=== PATIENT | male | born 1975 | race Caucasian/White ===

== ENCOUNTER 2023-10-28 18:26 | Emergency (ER) | payer OTHER, SELFPAY ==
--- NOTE | ~2023-10-28 | XR_ITS ---
EXAM: XR foot LT min 3V DATE: 10/28/2023 19:13 HISTORY: pain bruising . COMPARISON: None available. FINDINGS: Normal mineralization. No fracture or dislocation. No lytic or blastic lesion. Mild degene rative change at the first MTP joint. Os navicularis. Mild Achilles and plantar enthesopathy. No eros ion or periosteal change. Soft tissues within normal limits. IMPRESSION: No acute osseous finding in the left foot. Reviewed, dictated and finalized at location K.
[2023-10-28 18:45] VITALS: BP 129/79; PULSE 102; RESP 18; TEMP 36.6; O2SAT 98
--- NOTE | 2023-10-28 19:02 | ED.LOWEXIN ---
HPI - Extremity Injury (Lower) General Chief Complaint: Extremity Injury, Upper Stated Complaint: Left Foot Injury Source: patient Mode of arrival: ambulatory Limitations: no limitations History of Present Illness HPI Narrative: 47-year-old male presented for complaint of left foot pain, bruising and swelling x2days. He states he did a lot of walking 2 days ago. Also states he injured the foot 10/18, when he stepped wrong and rolled the ankle. Since then he had been having swelling to the outer side of the foot. Rates pain 04/27. Not taking anything for pain. Has applied ice. Related Data Home Medications Medication Instructions Recorded Confirmed omeprazole magnesium 20 mg 20 mg PO DAILY 10/28/23 10/28/23 tablet,delayed release (Prilosec OTC) trazodone 150 mg tablet See Rx Instructions .Route .COMPLEX 10/28/23 10/28/23 Allergies Allergy/AdvReac Type Severity Reaction Status Date / Time No Known Allergies Allergy Verified 10/28/23 18:54 Review of Systems Review of Systems: CONSTITUTIONAL: Denies body aches, fever, chills CARDIOVASCULAR: Denies chest pain, palpitations, or edema. RESPIRATORY: Denies cough or dyspnea. SKIN: Denies rash, itching, or wounds. MUSCULOSKELETAL: reports left foot pain, swelling NEUROLOGIC: Denies headache, numbness, tingling, or weakness. All systems reviewed & are unremarkable except as noted in HPI and below PMFSH Comments At time of signature, I have reviewed and agree with nursing past medical, surgical, social and family history unless otherwise noted. Please see nursing chart for further information. There is no relevant family history pertinent to the presenting complaint Exam Narrative: GENERAL: Well-appearing CHEST: Speaks in full sentences. No respiratory distress. HEART: Regular rate and rhythm. Normal and equal peripheral pulses. EXTREMITIES: Left foot has normal strength and sensation, normal range of motion. Swelling noted to dorsal aspect of left foot with ecchymosis to lateral aspect, No point tenderness. No open wounds, or obvious deformity; alignment normal, pulse palpable and equal bilaterally, skin warm, dry, pink. Capillary refill less than 3 seconds. SKIN: Warm, dry NEURO: Alert and oriented x3. Course Course Emergency Course: Patient is aware of diagnosis, understands and agrees to treatment plan. Anticipatory guidance given. Patient agrees to follow-up as directed and is aware of reasons to seek care at the emergency department. Portions of this record may have been created with voice recognition software Level of Care: Express Care Visit Vital Signs Vital signs: Vital Signs Temperature 98 F 10/28/23 18:45 Pulse Rate 102 H 10/28/23 18:45 Respiratory Rate 18 10/28/23 18:45 Blood Pressure 129/79 10/28/23 18:45 Pulse Oximetry 98 10/28/23 18:45 Temperature 98 F 10/28/23 18:45 Pulse Rate 102 H 10/28/23 18:45 Respiratory Rate 18 10/28/23 18:45 Blood Pressure 129/79 10/28/23 18:45 Pulse Oximetry 98 10/28/23 18:45 Reviewed MDM - Extremity Injury (Lower) MDM Narrative Medical decision making narrative: Discussed physical exam findings and xray results. declined AMINA. Advised supportive measures and signs/symptoms to go to the ER. Pt is appropriate for outpt treatment and f/u. Differential Diagnosis Differential diagnosis: Likely ankle sprain and strain and other (Plantar fasciitis, heel spur, foot strain/sprain, metatarsal fracture, metatarsalgia, anderson's neuroma) Imaging Data Radiologist's impression: Patient: Waqas Herrera : 1975 MR#: [id number] Age: 47 Acct:[id number] Loc: [facility] ADM Date: 10/28/23Attending Dr: Ordering Physician: Lisa García APRN Date of Service: 10/28/23 Procedure(s): XR foot LT min 3V Accession Number(s): [id number] cc: Lisa García APRN; Charity, Lorie VERNON~ EXAM: XR foot LT min 3V DATE: 10/28/2023 19:13 HISTORY:
== END 2023-10-28 19:30 | disposition home or self-care (01) ==
PROVIDERS: Emergency Provider Nurse Practitioner Family; PCP Nurse Practitioner Family
DX: S93.602A Unspecified sprain of left foot, initial encounter (principal); X50.3XXA Overexertion from repetitive movements, initial encounter; Y93.01 Activity, walking, marching and hiking; K21.9 Gastro-esophageal reflux disease without esophagitis
CPT/HCPCS: 73630; 99203; G0463

== ENCOUNTER 2024-06-01 17:36 | Emergency (ER) | payer OTHER, SELFPAY ==
--- NOTE | ~2024-06-01 | XR_ITS ---
3 VIEWS LUMBAR SPINE Ordering provider: Kelly Castellanos NP History: . back pain.NKI. . Comparison: None. FINDINGS: VERTEBRAL BODIES: No visible fracture or subluxation. Degenerative changes of the spine. DISK SPACES: Normal. SOFT TISSUES: Normal. IMPRESSION: No acute osseous abnormality lumbar spine. Reviewed, dictated and finalized at location A.
[2024-06-01 17:42] VITALS: BP 123/85; PULSE 105; RESP 20; TEMP 36.9; O2SAT 96
--- OUTSIDE RECORDS SUMMARY | 2024-06-01 17:57 | XMS_ITS | Referral Summary ---
Author Organization [facility] Address [address] [place] [id number] Phone Care Team Providers Care Electric Repair Supervisor Name Role Phone Lorie Nash NP Primary Care Provider [phone] Allergies No known active allergies Medications MULTIVITAMIN ORAL Take by mouth Active omeprazole (PriLOSEC) 40 mg capsule Take 1 capsule (40 mg total) by mouth daily 90 capsule 3 10/04/2022 Active traZODone (DESYREL) 150 mg tabletIndicatio ns:Primary insomnia TAKE 1/2 TO 1 TABLET BY MOUTH EVERY NIGHT 90 tablet 3 02/20/2024 Active Active Problems Problem Noted Date Diagnosed Date Annual physical exam 10/07/2022 Assessment & Plan (10/07/2022 8:24 PM CDT): Patient and I discussed the folllowing: -Healthy, low fat diet. Avoiding junk food/fast food. -30 minutes of exercise most days of the week. Increase to 45 minutes for weight loss. -Colonoscopy at age 52 and further colonoscopys pending GI recs. not indicated -Influenza vaccine every year recommended this fall -F/u in 1 year for Annual PE or sooner if needed Swelling of lower extremity 10/04/2022 Assessment & Plan (10/07/2022 8:28 PM CDT): Unknown etiology at this time however we did discuss his weight in relation to swelling in the lower extremities especially as he is sitting most of the day. He carries most of his weight in his abdomen. I think this can contribute to his dependent edema. We discussed a low-salt diet and weight loss. Tachycardia with heart rate 100-120 beats per mi nute 10/04/2022 Assessment & Plan (10/07/2022 8:27 PM CDT): Patient is uncomfortable going to doctor's offices for medical office visits. He states his heart rate always goes up when he goes into the hospitalist or doctor's offices. His confirms this. EKG shows normal sinus rhythm and no ectopy. Primary insomnia 03/17/2020 Assessment & Plan (02/20/2024 4:28 PM DATA NETWORK ARCHITECT): He is stable on his current medication trazodone 150 mg at bedtime. He wishes to continue this. He does not wish to receive any other healthcare interventions at this time so we will refill his medication. I gave him 1 year's worth and will have him follow-up in 1 year. Assessment & Plan (10/07/2022 8:29 PM CDT): Stable. He continues on 75 mg trazodone. This works well for him so will continue current medication may follow-up in 6 months Assessment & Plan (01/05/2022 1:57 PM DATA NETWORK ARCHITECT): Patient has been on Trazodone 150 mg for many years per pt and his . Stable on the medication. With patient's snoring and gasping in the middle of the night, I discussed possibility of MARIANO. Patient not agreeable at this time for further investigation as him and his believe this is due to worsening GERD. Assessment & Plan (03/17/2020 4:15 PM DATA NETWORK ARCHITECT): Stable on current. recommend at least 10 minutes of moderate intensity exercise most days of the week with a goal of 150 minutes weekly. Gastroesophageal reflux disease without esophagi tis 03/17/2020 Assessment & Plan (10/07/2022 8:26 PM CDT): Discussed risks and benefits of medication versus symptoms. Will continue him on 40 mg of omeprazole once daily. Alternatively he could try Pepcid 20 mg twice daily. He may try weaning off by taking it every other day. He has a history of either Macdonald's or esophagitis but his last EGD was many years ago. Will refer to GI for updated EGD Assessment & Plan (01/05/2022 1:56 PM DATA NETWORK ARCHITECT): Worsening symptoms, will try switching to Pantoprazole. Discussed potential for GI consult if not improvement-pt not too keen on this. Will re-evaluate in 6 weeks. Encouraged healthy diet and exercise Avoid trigger foods including: carbonated beverages, caffeine, spicy, fried foods, tomatoes, cucumbers, and mint Avoid eating/drinking anything for at least 2 hours before bed. Sleep with bed propped. Discussed increased risk of cdif and vit B12 deficiency with rn long term care use of PPI with pt, would like to remain on medication at this time Assessment & Plan (03/17/2020 4:15 PM DATA NETWORK ARCHITECT): Doing well with PPI Discussed no meals before bed Try to identify and avoid aggravating foods Class 2 drug-induced obesity with serious comorbidity and body mass index (BMI) of 36.0 to 36.9 in adult 07/11/2018 Assessment & Plan (10/07/2022 8:24 PM CDT): BMI Follow-up includes: nutrition counseling and exercise counseling. Assessment & Plan (01/05/2022 1:43 PM DATA NETWORK ARCHITECT): Healthy, low carbohydrate lifestyle and exercise for 150min/week recommended Assessment & Plan (07/11/2018 10:02 AM CDT): discussed healthy diet, exercise and adequate sleep Body mass index is 26.88 kg/m . Resolved Problems Problem Noted Date Diagnosed Date Resolved Date Post-operative state 09/11/2018 021 Bilateral inguinal hernia wi thout obstruction or gangrene 08/06/2018 03/17/2020 Overview (08/06/2018): Added automatically from request for surgery [id number] Right inguinal hernia 07/31/20182020 Right groin pain 07/11/2018 03/17/2020 Assessment & Plan (07/11/2018 10:24 AM CDT): Reviewed CT scan and US reports from 2010, 2016 true inguinal hernia vs sports hernia. With bulge in that area, I recommend eval by gen surgery If traditional hernia is not felt to be there, will recommend PT. Release for prior records form PCP Immunizations Immunization Administration Dates Next Due Influenza, Quadrivalent, Spl it, Intramuscular 12/11/2016 Influenza, Quadrivalent, Spl it, Preservative Free, Intramuscular 01/15/2021 Influenza, Unspecified 01/04/2022(Deferred: Lisa ent decision) PPD TEST 01/02/2005 Tdap 10/04/2016,01/02/2005 Social History Tobacco Use Types Packs/Day Years Used Date Smoking Tobacco: Former Cigarettes Q uit: 02/19/2008 Smokeless Tobacco: Never Tobacco Cessation:Counseling Given: Yes Alcohol Use Standard Drinks/Week Comments Not Currently 0 (1 standard drink = 0.6 oz pur e alcohol) PHQ-2 Answer Date Recorded PHQ-2 Total Score (If total score is 3 or more points, staff should administer the PHQ-9) 0 02/20/2024 Sex and Gender Information Value Date Recorded Sex Assigned at Not on file Legal Sex Male 4:55 PM CDT Gender Identity Male 09/01/2018 11:54 AM CDT Sexual Orientation Straight 03/13/2020 9: 02 PM DATA NETWORK ARCHITECT Last Filed Vital Signs Vital Sign Reading Time Taken Comments Blood Pressure 126/78 10/04/2022 2:20 PM CDT Pulse 106 10/04/2022 2:20 PM CDT Temperature 36.4 C (97.6 F) 11/14/2021 5:24 PM CDT Respiratory Rate 20 10/04/2022 2:20 PM CDT Oxygen Saturation 96% 10/04/2022 2:20 PM CDT Inhaled Oxygen Concentration - - Weight 110.7 kg (244 lb) 10/04/2022 2:20 PM CDT Height 174 cm (5' 8.5 ) 10/04/2022 2:20 PM CDT Body Mass Index 36.56 10/04/2022 2:20 PM CDT Plan of Treatment Not on file Medical Devices Implanted Type Area Dead Mail Checker Device Identifier Shelf Expiration Date Model / Serial / Lot [employer]/C R Bard [id number] Bard 3dmax 6x4in Seal Edge Groin Left Large 3d Curve Contour Mesh - [id number] Implanted:Qty : 1 on 08/29/2018 by Sunny Pham MD at [facility] Left: Inguinal [employer]/C R Bard [id number] 05/16/2023 [id number] / / [id number] [employer]/C R Bard [id number] Bard 3dmax 6x4in Seal Edge Groin Right Large 3d Curve Contour - [id number] Implanted:Qty : 1 on 08/29/2018 by Sunny Pham MD at [facility] Right: Inguinal [employer]/C R Bard [id number] 03/17/2023 [id number] / / [id number] Insurance [facility] EMPL[employer]EE HE[employer] PLANS Address: [facility] [address] [place] [address] Care Teams Electric Repair Supervisor Relationship Specialty Start Date End Date Lorie Nash NP PCP - General Family Medicine 10/04/22
--- OUTSIDE RECORDS SUMMARY | 2024-06-01 17:57 | XMS_ITS | Clinical Summary ---
Author Organization [facility] Address [address] [place] [phone] Phone Care Team Providers Care Carpet Layer Name Role Phone Lorie Nash NP Primary Care Provider [phone] Allergies No known active allergies Medications MULTIVITAMIN [...] 03/17/2020 Assessment & Plan (02/20/2024 4:28 PM GUEST SERVICE TEAM LEADER): He is stable on his current medication [...] months Assessment & Plan (01/05/2022 1:57 PM GUEST SERVICE TEAM LEADER): Patient has been on Trazodone 150 mg for many years per pt and his . Stable on the medication. With patient's snoring and gasping in the middle of the night, I discussed possibility of MARIANO. Patient not agreeable at this time for further investigation as him and his believe this is due to worsening GERD. Assessment & Plan (03/17/2020 4:15 PM GUEST SERVICE TEAM LEADER): Stable on current. recommend at least 10 [...] EGD Assessment & Plan (01/05/2022 1:56 PM GUEST SERVICE TEAM LEADER): Worsening symptoms, will try switching to Pantoprazole. [...] of cdif and vit B12 deficiency with rat exterminator use of PPI with pt, would like to remain on medication at this time Assessment & Plan (03/17/2020 4:15 PM GUEST SERVICE TEAM LEADER): Doing well with PPI Discussed no meals before bed Try to identify and avoid aggravating foods Class 2 drug-induced obesity with serious comorbidity and body mass index (BMI) of 36.0 to 36.9 in adult 07/11/2018 Assessment & Plan (10/07/2022 8:24 PM CDT): BMI Follow-up includes: nutrition counseling and exercise counseling. Assessment & Plan (01/05/2022 1:43 PM GUEST SERVICE TEAM LEADER): Healthy, low carbohydrate lifestyle and exercise for 150min/week recommended Assessment & Plan (07/11/2018 10:02 AM CDT): discussed healthy diet, exercise and adequate sleep Body mass index is 26.88 kg/m . Resolved Problems Problem Noted Date Diagnosed Date Resolved Date Post-operative state 09/11/2018 021 Bilateral inguinal hernia wi thout obstruction or gangrene 08/06/2018 03/17/2020 Overview (08/06/2018): Added automatically from request for surgery [id number] Right inguinal hernia 07/31/20182020 Right groin pain [...] ent decision) PPD TEST 01/02/2005 Tdap 10/04/2016,01/02/2005 Surgical History Surgery Date Site/Laterality Comments HERNIA REPAIR 08/18/2018 - 09/17/2018 Bilateral Medical History Medical History Date Comments Acid reflux Insomnia Family History Medical History Relation Name Comments No Known Problems Daughter 1 No Known Problems Daughter 2 Prostate cancer Father No Known Problems Half-Brother No Known Problems Half-Sister No Known Problems Mother No Known Problems Sister Colon cancer Neg Hx Relation Name Status Comments Daughter 1 Alive Daughter 2 Alive Father Alive Half-Brother Alive Half-Sister Alive Mother Alive Sister Alive Social History Tobacco Use Types Packs/Day Years [...] Sexual Orientation Straight 03/13/2020 9: 02 PM GUEST SERVICE TEAM LEADER Obstetrics History Last Filed Vital Signs Vital Sign Reading [...] 10/04/2022 2:20 PM CDT Plan of Treatment Health Maintenance Due Date Last Done Comments Colon Cancer Screening-Colonoscopy 1975 Hepatitis C Screening 1975 Prostate Cancer Screening-PSA 1975 Hepatitis B Screening 11/29/1995 Regular Well Visit/Exam 18-64 10/05/2023 10/04/2022 Covid-19 Vaccine ( season) 2023 12/15/2021, 01/15/2021, 05/20/2020, Additional history exists Influenza Vaccine (#1) 2023 01/15/2021, 2016 Depression Screening 02/19/2025 02/20/2024, 10/04/2022, 01/04/2022, Additional history exists DTaP/Tdap/Td Vaccine (3 - Td or Tdap) 10/04/2026 10/04/2016, 01/02/2005 HPV Vaccines Aged Out No longer eligi ble based on patient's age to complete this topic Pneumococcal vaccine <65 Aged Out No longer eligible based on patient's age to complete this topic Medical Devices Implanted Type Area Skiver Box Toe Device Identifier Shelf Expiration Date Model / Serial / Lot [employer]/C R Bard [id number] Bard 3dmax 6x4in Seal Edge Groin Left Large 3d Curve Contour Mesh - [id number] Implanted:Qty : 1 on 08/29/2018 by Sunny Pham MD at Left: Inguinal [employer]/C R Bard [id number] 05/16/2023 [id number] / / [id number] [employer]/C R Bard [id number] Bard 3dmax 6x4in Seal Edge Groin Right Large 3d Curve Contour - [id number] Implanted:Qty : 1 on 08/29/2018 by Sunny Pham MD at Right: Inguinal [employer]/C R Bard [id number] 03/17/2023 [id number] / / [id number] Insurance [facility] PPO [facility] EMPL[employer]EE HEALTH PLANS Address: [facility] [id number] [place] [address] Care Teams Carpet Layer Relationship Specialty Start Date End Date Lorie Nash NP PCP - General Family Medicine 10/04/22
--- OUTSIDE RECORDS SUMMARY | 2024-06-01 17:58 | XMS_ITS | Data Portability ---
Author Organization [facility] Jennifer [facility] Address [address] [place] [address] Care Team Providers Care Prorate Clerk Name Role Phone IVY CLAY Primary Care Provider Unavailabl e Assessment No assessment recorded. Plan of Treatment Reminders Order Date Submit Date Provider Last Modified By Organization Details Last Modified Time Details Appointments None recorded. Lab None recorded. Referral general surgeon referral - Please call pt to schedule appointmen t, Thank you 2017 018 [email or web address] Not available 9 09:33:00 Procedures None recorded. Surgeries None recorded. Imaging None recorded. Medication Orders azithromyc in 250 mg tablet 2018 019 INTERFACE [facility] #[id number], [address], [place], [place], [id number], 9 10:24:46 methylpred nisolone 4 mg tablets in a dose pack 2018 019 [facility] #[id number], [address], [place], [place], [id number], 9 10:24:46 amoxicilli n 875 mg-potassi um clavulanat e 125 mg tablet 2017 018 kyounmartina [facility] #[id number], [address], [place], [place], [id number], 9 10:10:34 ranitidine 300 mg tablet 2017 018 INTERFACE [facility] #[id number], [address] [place], [place], [id number], 8 10:24:07 methylpred nisolone 4 mg tablets in a dose pack 2017 018 [id number], [address], [place], [place], [id number], 9 10:10:51 trazodone 150 mg tablet 2017 018 [facility] #[id number], [address], [place], [place], [id number], 8 16:36:36 ranitidine 300 mg tablet 2017 018 [id number], [address], [place], [place], [id number], 8 16:38:43 trazodone 150 mg tablet 2016 017 [facility] #[id number], [address], [place], [place], [id number], 7 09:02:17 Patient TargetsNo targets recorded. Patient Instructions Encounter Date Encounter Id Patient Instructions Last Modified By Organization Details Last Modified Time 12/11/2016 [id number] STOP tamsulosin. Increase trazodone to 150mg - new higher dose prescription sent today (take only one tablet) [email or web address] Not available 12/11/2016 09:02:50 02/28/2018 [id number] Given referral for Dr. Hewitt at [facility] for general surgery to eval hernia [email or web address] Not available 02/28/2018 10:26:38 Reason for Referral General Surgeon Referral for Inguinal pain Please call pt to schedule appointment, Thank you Referring Physician: Ivy Clay, Internal Medicine, Encounter Date: 02/17/2018 Results Created Date Observation Date Name Description Value Unit Range Abnormal Flag Note LastModifiedBy Organization Detail LastModifiedTime 10/05/19 17 10/05/2016 CBC WBC 7.9 x10e3 /uL 3.4-10 .8 Not Available [facility] ([facility]) [address] [facility] [place], [address], 10/05/2016 06:08:31 10/05/19 17 10/05/2016 CBC RBC 5.15 x10e6 /uL 4.14-5 .80 Not Available [facility] ([facility]) [address] [facility], [place], [address], 10/05/2016 06:08:31 10/05/19 17 10/05/2016 CBC hemoglobin 15.0 g/dL 12.6-1 7.7 Not Available [facility] ([facility]) [address] [place], [address], 10/05/2016 06:08:31 10/05/19 17 10/05/2016 CBC hematocrit 44.3 % 37.5-5 1.0 Not Available [facility] ([facility]) [address] [place], [address], 10/05/2016 06:08:31 10/05/1910/05/2016 CBC MCV 86 fL 79-97 Not Available [facility] ([facility]) [address] [place], [address], 10/05/2016 06:08:31 10/05/19 17 10/05/2016 CBC MCH 29.1 pg 26.6-3 3.0 Not Available [facility] ([facility]) [address] [place], [address], 10/05/2016 06:08:31 10/05/19 17 10/05/2016 CBC MCHC 33.9 g/dL 31.5-3 5.7 Not Available [facility] ([facility]) [address] [place], [address], 10/05/2016 06:08:31 10/05/19 17 10/05/2016 CBC RDW 13.3 % 12.3-1 5.4 Not Available [facility] ([facility]) [address] [facility], [place], [address], 10/05/2016 06:08:31 10/05/19 17 10/05/2016 CBC platelets 225 x10e3 /uL 150-37 9 Not Available [facility] ([facility]) [address] [facility], [place], [address], 10/05/2016 06:08:31 10/05/19 17 10/05/2016 CBC neutrophils 62 % Not Avai lable [facility] ([facility]) [address] [facility], [place], [address], 10/05/2016 06:08:31 10/05/1910/05/2016 CBC lymphs 28 % Not Available [facility] ([facility]) [address] [facility], [place], [address], 10/05/2016 06:08:31 10/05/1910/05/2016 CBC monocytes 6 % Not Availa ble [facility] ([facility]) [address] [facility] [place], [address], 10/05/2016 06:08:31 10/05/1910/05/2016 CBC eos 4 % Not Available [facility] ([facility]) [address] [facility], [place], [address], 10/05/2016 06:08:31 10/05/19 17 10/05/2016 CBC basos 0 % Not Available [facility] ([facility]) [address] [facility], [place], [address], 10/05/2016 06:08:31 10/05/1910/05/2016 CBC immature cells CARPENTER RAILCAR Not Available [facility]) [address] [facility], [place], [address], 10/05/2016 06:08:31 10/05/19 17 10/05/2016 CBC neutrophils (absolute) 4.8 x10e3 /uL 1.4-7. 0 Not Available [facility] ([facility]) [address] [facility] [place], [address], 10/05/2016 06:08:31 10/05/19 17 10/05/2016 CBC lymphs (absolute) 2.3 x10e3 /uL 0.7-3. 1 Not Available [facility] ([facility]) [address] [facility], [place], [address], 10/05/2016 06:08:31 10/05/1910/05/2016 CBC monocytes(ab solute) 0.5 x10e3 /uL 0.1-0. 9 Not Available [facility] ([facility]) [address] [facility], [place], [address], 10/05/2016 06:08:31 10/05/1910/05/2016 CBC eos (absolute) 0.3 x10e3 /uL 0.0-0. 4 Not Available [facility] ([facility]) [address] [facility], [place], [address], 10/05/2016 06:08:31 10/05/1910/05/2016 CBC baso (absolute) 0.0 x10e3 /uL 0.0-0. 2 Not Available [facility] ([facility]) [address] [facility], [place], [address], 10/05/2016 06:08:31 10/05/1910/05/2016 CBC immature granulocytes 0 % Not Available [facility]) [address] [facility] [place], [address], 10/05/2016 06:08:31 10/05/1910/05/2016 CBC immature grans (abs) 0.0 x10e3 /uL 0.0-0. 1 Not Available [facility] ([facility]) [address] [facility] [place], [address], 10/05/2016 06:08:31 10/05/19 17 10/05/2016 CBC NRBC CARPENTER RAILCAR Not Available [facility] ([facility]) [address] [place], [address], 10/05/2016 06:08:31 10/05/19 17 10/05/2016 CBC hematology comments: CARPENTER RAILCAR Not Available [facility]) [address] [place], [address], 10/05/2016 06:08:31 10/05/19 17 10/05/2016 CMP, serum or plasm a glucose, serum 86 mg/dL 65-99 Not Available [facility]) [address] [place], [address], 10/05/2016 06:08:31 10/05/19 17 10/05/2016 CMP, serum or plasm a BUN 11 mg/dL 6-20 Not Available [facility] ([facility]) [address] [place], [address], 10/05/2016 06:08:31 10/05/19 17 10/05/2016 CMP, serum or plasm a creatinine, serum 1.01 mg/dL 0.76-1 .27 Not Available [facility] ([facility]) [address] [place], [address], 10/05/2016 06:08:31 10/05/19 17 10/05/2016 CMP, serum or plasm a eGFR if nonafricn AM 94 mL/mi n/1.7 3 >59 Not Available [facility] ([facility]) [address] [place], [address], 10/05/2016 06:08:31 10/05/19 17 10/05/2016 CMP, serum or plasm a eGFR if africn AM 109 mL/mi n/1.7 3 >59 Not Available [facility] ([facility]) [address] [place], [address], 10/05/2016 06:08:31 10/05/19 17 10/05/2016 CMP, serum or plasm a BUN/creatini ne ratio 11 9-20 Not Available [facility]) [address] [facility] [place], [address], 10/05/2016 06:08:31 10/05/19 17 10/05/2016 CMP, serum or plasm a sodium, serum 142 mmol/ L 134-14 4 Not Available [facility] ([facility]) [address] [place], [address], 10/05/2016 06:08:31 10/05/1910/05/2016 CMP, serum or plasm a potassium, serum 4.7 mmol/ L 3.5-5. 2 Not Available [facility] ([facility]) [address] [place], [address], 10/05/2016 06:08:31 10/05/19 17 10/05/2016 CMP, serum or plasm a chloride, serum 101 mmol/ L 96-106 Not Available [facility] ([facility]) [address] [place], [address], 10/05/2016 06:08:31 10/05/1910/05/2016 CMP, serum or plasm a carbon dioxide, total 25 mmol/ L 18-29 Not Available [facility] ([facility]) [address] [place], [address], 10/05/2016 06:08:31 10/05/1910/05/2016 CMP, serum or plasm a calcium, serum 9.1 mg/dL 8.7-10 .2 Not Available [facility] ([facility]) [address] [place], [address], 10/05/2016 06:08:31 10/05/1910/05/2016 CMP, serum or plasm a protein, total, serum 6.8 g/dL 6.0-8. 5 Not Available [facility] [address] [facility] [place], [address], 10/05/2016 06:08:31 10/05/1910/05/2016 CMP, serum or plasm a albumin, serum 4.7 g/dL 3.5-5. 5 Not Available [facility] ([facility] [address] [place], [address], 10/05/2016 06:08:31 10/05/1910/05/2016 CMP, serum or plasm a globulin, total 2.1 g/dL 1.5-4. 5 Not Available [facility] [address] [place], [address], 10/05/2016 06:08:31 10/05/1910/05/2016 CMP, serum or plasm a A/G ratio 2.2 1.2-2. 2 Not Available [facility] ([facility]) [address] [facility] [place], [address], 10/05/2016 06:08:31 10/05/1910/05/2016 CMP, serum or plasm a bilirubin, total 0.4 mg/dL 0.0-1. 2 Not Available [facility] [address] [facility] [place], [address], 10/05/2016 06:08:31 10/05/1910/05/2016 CMP, serum or plasm a alkaline phosphatase, S 74 IU/L 39-117 Not Available [facility] [address] [place], [address], 10/05/2016 06:08:31 10/05/1910/05/2016 CMP, serum or plasm a AST (SGOT) 30 IU/L 0-40 Not Available [facility] [address] [place], [address], 10/05/2016 06:08:31 10/05/192017 CMP, serum or plasm a ALT (SGPT) 66 IU/L 0-44 above high normal Not Available [facility] ([facility]) [address] [facility] [place], [address], 10/05/2016 06:08:31 10/05/19 17 10/05/2016 urina lysis , compl ete specific gravity 1.028 1.005- 1.030 Not Available [facility] ([facility]) [address] [facility], [place], [address], 10/05/2016 06:08:32 10/05/1910/05/2016 urina lysis , compl ete pH 5.5 5.0-7. 5 Not Available [facility] ([facility]) [address] [facility], [place], [address], 10/05/2016 06:08:32 10/05/1910/05/2016 urina lysis , compl ete urine-color YELLOW yellow Not Available [facility]) [address] [facility], [place], [address], 10/05/2016 06:08:32 10/05/1910/05/2016 urina lysis , compl ete appearance CLEAR clear Not Available [facility] ([facility]) [address] [facility], [place], [address], 10/05/2016 06:08:32 10/05/1910/05/2016 urina lysis , compl ete WBC esterase NEGATI VE negati ve Not Available [facility] ([facility]) [address] [facility], [place], [address], 10/05/2016 06:08:32 10/05/1910/05/2016 urina lysis , compl ete protein NEGATI VE negati ve/tra ce Not Available [facility] ([facility]) [address] [facility], [place], [address], 10/05/2016 06:08:32 10/05/19 17 10/05/2016 urina lysis , compl ete glucose NEGATI VE negati ve Not Available [facility] ([facility]) [address] [place], [address], 10/05/2016 06:08:32 10/05/19 17 10/05/2016 urina lysis , compl ete ketones NEGATI VE negati ve Not Available [facility] ([facility]) [address] [place], [address], 10/05/2016 06:08:32 10/05/19 17 10/05/2016 urina lysis , compl ete occult blood NEGATI VE negati ve Not Available [facility] ([facility]) [address] [place], [address], 10/05/2016 06:08:32 10/05/19 17 10/05/2016 urina lysis , compl ete bilirubin NEGATI VE negati ve Not Available [facility] ([facility]) [address] [place], [address], 10/05/2016 06:08:32 10/05/19 17 10/05/2016 urina lysis , compl ete urobilinogen ,semi-qn 0.2 mg/dL 0.2-1. 0 Not Available [facility] ([facility]) [address] [place], [address], 10/05/2016 06:08:32 10/05/19 17 10/05/2016 urina lysis , compl ete nitrite, urine NEGATI VE negati ve Not Available [facility] ([facility]) [address] [place] [address], [address], 10/05/2016 06:08:32 10/05/1910/05/2016 urina lysis , compl ete microscopic examination COMMEN T MICRO SCOPI C NOT INDIC ATED AND NOT PERFO RMED. Not Available [facility] ([facility]) [address] [place], [address], 10/05/2016 06:08:32 10/05/19 17 10/05/2016 lipid panel , serum cholesterol, total 194 mg/dL 100-19 9 Not Available [facility] ([facility]) [address] [place], [address], 10/05/2016 06:08:32 10/05/19 17 10/05/2016 lipid panel , serum triglyceride s 264 mg/dL 0-149 above high normal Not Available [facility] ([facility]) [address] [place], [address], 10/05/2016 06:08:32 10/05/19 17 10/05/2016 lipid panel , serum HDL cholesterol 30 mg/dL >39 below low normal Not Available [facility] ([facility]) [address] [facility] [place], [address], 10/05/2016 06:08:32 10/05/19 17 10/05/2016 lipid panel , serum VLDL cholesterol airam 53 mg/dL 5-40 above high normal Not Available [facility] ([facility]) [address] [place], [address], 10/05/2016 06:08:32 10/05/19 17 10/05/2016 lipid panel , serum LDL cholesterol calc 111 mg/dL 0-99 above high normal Not Available [facility] ([facility]) [address] [facility] [place], [address], 10/05/2016 06:08:32 10/05/19 17 10/05/2016 lipid panel , serum comment: CARPENTER RAILCAR Not Available [facility] ([facility]) [address] [facility] [place], [address], 10/05/2016 06:08:32 10/16/19 17 10/15/2016 US, scrot um No observ ation record ed. [address] [place], [address], 10/16/2016 13:18:12 10/21/19 17 10/20/2016 CT, abdom en + pelvi s, w/ contr ast No observ ation record ed. [email or web address] [address] [place], [address], 10/24/2016 17:43:37 Result Notes None recorded. Problems Name Problem SNOMED Code Status Onset Date Resolution Date Notes Provider Name and Address Organization Details Recorded Time Inguinal pain 157414352 Active 2016 saw , conservati ve tx Ivy Clay PA-C Attn: Accountin g,[address] [facility], [place], [address], [facility] 8 16:34:46 Hyperlipid emia 14769740 Active 2016 Ivy Clay PA-C Attn: Accountscottie g,[address] [facility], [place], [address], [facility] 8 16:36:44 Gastroesop hageal reflux disease without esophagiti s 229501260 Active 2016 Ivy Clay PA-C Attn: Luis zelaya,[address] [facility], [place], [address], [facility] 7 09:20:18 Insomnia 152827732 Active 2016 Ivy Clay PA-C Attn: Luis g,[address] [facility], [place], [address], [facility] 7 09:01:47 Problem Notes None recorded. Procedures Surgical History None recorded. Imaging Results Imaging Date Name Status LastModified by Organiz ation Details LastModified Time 10/15/2016 US, scrotum completed [address] [place], [address], 10/16/2016 13:18:12 10/20/2016 CT, abdomen + pelvis, w/ contrast completed [email or web address] [place] [address] [place], [address], 10/24/2016 17:43:37 Procedure Notes None recorded. Medical Equipment None Reported. Allergies No known drug allergies Medications Name Sig Start Date Stop Date Status Note LastModified by Organization Details LastModified Time trazodone 50 mg tablet Take 1 tablet as needed by oral route at bedtime. 09/26 completed Not Available Not Available Not Available azithromyci n 250 mg tablet TAKE 2 TABLETS (500 MG) BY ORAL ROUTE ONCE DAILY FOR 1 DAY THEN 1 TABLET (250 MG) BY ORAL ROUTE ONCE DAILY FOR 4 DAYS 2018 active Not Available Not Available Not Avai lable ibuprofen 800 mg tablet TAKE 1 TABLET BY MOUTH THREE TIMES DAILY 2016 active prn Not Available Not Available Not Avai lable ranitidine 300 mg tablet TAKE 1 TABLET BY MOUTH EVERY DAY 2017 active Not Available Not Available Not Avai lable tamsulosin 0.4 mg capsule TAKE 1 CAPSULE BY MOUTH WITH BREAKFAST 12/11 completed Not Available Not Available Not Available trazodone 150 mg tablet TAKE 1 TABLET BY MOUTH AT BEDTIME NEEDED active Not Available Not Available No t Available omeprazole 20 mg capsule,del ayed release Take 1 capsule every day by oral route. 02/17 completed Not Available Not Available Not Available methylpredn isolone 4 mg tablets in a dose pack take as directed 2018 active Not Available Not Available Not Avai lable amoxicillin 875 mg-potassiu m clavulanate 125 mg tablet Take 1 tablet every 12 hours by oral route for 7 days. 02/28 completed Not Available Not Available Not Available Sleep Aid (diphenhydr amine) 25 mg capsule Take 1 capsule every day by oral route at bedtime. 10/16 completed Not Available Not Available Not Available Vitals Date Recorded Body height Body mass index (BMI) Body weight Heart rate Respiratory rate Body temperature Oxygen saturation Oxygen saturation in Arterial blood by Pulse oximetry Systolic blood pressure Diastolic blood pressure Provider Name and Address Organization Details Last Updated DateTime 8 170.82 cm 28.4 kg/m2 90610.0 4 g 82 /min 12 /min 98.7 [degF] 98 % 98 % 104 mm[Hg] 70 mm[Hg] JOSUÉ Ramachandran [place] - [place] 8 16:20:42 Date Recorded Body height Body mass index (BMI) Body weight Heart rate Respiratory rate Body temperature Oxygen saturation Oxygen saturation in Arterial blood by Pulse oximetry Systolic blood pressure Diastolic blood pressure Provider Name and Address Organization Details Last Updated DateTime 8 170.82 cm 29.1 kg/m2 03920.1 3 g 99 /min 16 /min 97.6 [degF] 96 % 96 % 128 mm[Hg] 92 mm[Hg] JOSUÉ Ramachandran [facility] 8 10:03:24 Date Recorded Body height Body mass index (BMI) Body weight Heart rate Respiratory rate Body temperature Oxygen saturation Oxygen saturation in Arterial blood by Pulse oximetry Systolic blood pressure Diastolic blood pressure Provider Name and Address Organization Details Last Updated DateTime 9 170.82 cm 28.5 kg/m2 62804.1 2 g 86 /min 16 /min 98.6 [degF] 98 % 98 % 126 mm[Hg] 90 mm[Hg] JOSUÉ Ramachandran [facility] 9 10:13:28 Date Recorded Body height Body mass index (BMI) Body weight Heart rate Respiratory rate Body temperature Oxygen saturation Oxygen saturation in Arterial blood by Pulse oximetry Systolic blood pressure Diastolic blood pressure Provider Name and Address Organization Details Last Updated DateTime 7 170.82 cm 29.8 kg/m2 11606.3 8 g 65 /min 12 /min 97.9 [degF] 98 % 98 % 114 mm[Hg] 72 mm[Hg] JOSUÉ Ramachandran [place] [facility] 7 09:01:55 Date Recorded Body height Body mass index (BMI) Body weight Heart rate Respiratory rate Body temperature Oxygen saturation Oxygen saturation in Arterial blood by Pulse oximetry Systolic blood pressure Diastolic blood pressure Provider Name and Address Organization Details Last Updated DateTime 7 170.82 cm 28.9 kg/m2 74303.7 4 g 109 /min 12 /min 98.3 [degF] 98 % 98 % 102 mm[Hg] 80 mm[Hg] Wendi Eden [facility] 7 08:36:58 Social History Question Answer Notes LastModified by Organizat ion Details LastModified Time Tobacco Smoking Status Former Smoker TIARA [place], [place] - [place] 10/04/2016 09:05:48 What Is Your Level Of Alcohol Consumption? Occasional Information not available 10/04/2016 What Is Your Level Of Caffeine Consumption? Moderate Couple Cups Of Coffee A Day Information not available 10/04/2016 What Type Of Diet Are You Following? 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 No Information not available 10/04/2016 Hard Of Hearing Or Deaf In One Or Both Ears? No Information not available 10/04/2016 Legally Blind In One Or Both Eyes? No Information not available 10/04/2016 Marital Status Information not available 10/04/2016 What Was The Date Of Your Most Recent Tobacco Screening? 02/28/2018 Information not available 09/11/2018 Seat Belts Used Routinely Yes Information not available 10/04/2016 Smoke Alarm In Home Yes Information not available 10/04/2016 How Much Tobacco Do You Smoke? No Information not available 10/04/2016 General Stress Level Medium Information not available 10/04/2016 Do You Use Sunscreen Routinely? No Information not available 10/04/2016 Sex: Unknown Functional Status Question Answer Note LastModified by Organization D etails LastModified Time What is your exercise level? None Information not available 10/04/2016 Mental Status None recorded. Family History Relationship Description Onset Age of this Age Resolved Age Notes LastModified by Organization Details LastModified Time Father No current problems or disability [email or web address] Not available 09:05:38 Mother No current problems or disability [email or web address] Not available 09:05:38 Medical History Condition Response Coronary Artery Disease N Other N High Blood Pressure N Atrial Fibrillation N Kidney or Bladder Problems N Thyroid Problems N GI Problems N Depression N COPD N Blood Clots N Skin Problems N Anemia N Heart Attack (SD) N Anxiety Disorder N Diabetes N Muscle, Joint, or Bone Problems N Seizures/Epilepsy N Acid Reflux (GERD) Y Cancer N Stroke N Asthma N Allergies N High Cholesterol N Hepatitis N Liver Disease N Headaches N Osteoporosis N Heart Failure N Immunizations Vaccine Type Date Status Note Provider Nam e and Address Organization Details Recorded Time Tdap 7 completed Not Available [facility] 03/07/2019 02:39:18 Influenza, split virus, quadrivalent, preservative 7 completed Not Available [facility] 03/07/2019 02:34:24 Past Encounters Encounter ID Performer Location Encounter Start Date Encounter Closed Date Diagnosis/Indication Diagnosis SNOMED-CT Code Diagnosis ICD10 Code Diagnosis Note [id number] FRANCISCO Ramos (Adult Med) [address] [place] [address] 10/04/2016 08:54:34 10/08/2016 10:35:26 Gastroesophageal reflux disease without esophagitis 142294258 K21.9 controlled on omeprazole , cont current medication , cont diet & exercise. Body mass index 25-29 - overweight 746374006 Z68.28 cont low fat diet, slowly add exercise as right groin pain allows. Adult heal th examination 343079057 Z00.00 denies any prior preventive care, only seeing providers for acute visits in recent past. 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 Lower urin saud tract symptoms 426284221 R39.9 present prior to groin pain sxs, possibly from correction benadryl Administra tion of diphtheria, pertussis, and tetanus vaccine [id number] Z23 Can't recall if he's ever had the Tdap booster Cholesterol screening 27 [id number] Z13.220 no prior screening per patient, 70lb weight loss in recent years [id number] FRANCISCO Ramos (Adult Med) [address] [place] [address] 10/24/2016 08:44:43 10/24/2016 10:46:19 Abdominal pain [id number] R10.9 RLQ radiating into right groin/scro glenn. Reviewed CT abd/pelvis and testicular ultrasound results with patient, no obvious hernia noted, no acute abdominal findings. discussed possible rectus abdominus muscle strain w/ possible intermitte nt hernia. Recommend continued use of ibuprofen before and after activity. Restart exercises that don't including heavy lifting and squats, start w/ cardio like eliptical. Keep appt with Retention of urine [id number] 4002 R33.9 cont generic flomax, drink plenty of water, stop Benadryl. Keep appt w/ [id number] FRANCISCO Ramos (Adult Med) [address] [place] [address] 12/11/2016 08:27:00 12/13/2016 18:15:19 Gastroesophageal reflux disease without esophagitis [id number] K21.9 controlled on omeprazole , cont current medication , cont diet & exercise. Insomnia [id number] G47.0 0 discussed at length options for treatment of insomnia. Advised to increase trazodone to 150mg at bedtime. Call in 4 weeks if still not working well and discuss options over the phone. Administra tion of influenza vaccine [id number] Z23 Retention of urine 35438 4002 R33.9 cont to stay away from daily use of benadryl Strain of abdominal muscle [id number] S39.011S reviewed types of isometric exercises to avoid rapid position change w/ push ups/sit ups. Gave examples of how to hold contracted positions like Plank instead of push up, etc. If movement hurts then stop it. [id number] JOSUÉ Ramachandran (Adult Med) [address] [place] [address] 09/26/2017 16:11:05 09/26/2017 16:49:02 Gastroesophageal reflux disease without esophagitis [id number] K21.9 controlled on omeprazole , but he is interested in changing med per his mom's recs (she's an RN). dwp precaution w/ terminal supervisor omeprazole use, recommend he either change to other PPI like Nexium or Protonix or change to Zantac. If he wants to take it once a day then recommend 300mg. Cont working on weight loss Insomnia 138016753 G47.0 0 His sleep is improved on trazodone. He would like to get full year of refills. Recommend once a year annual exam with labs. Inguinal pain [id number] R10.2 right sided, negative workup. He saw who recommende d conservati ve mgmt. Pt deferred surgical referral at this time. He feels he is able to work through the pain and started doing abdominal workouts again. Body mass index 25-29 - overweight 205832811 Z68.28 cont low fat diet, slowly add exercise as right groin pain allows. Flatulence , eructation and gas pain 591478786 R14.1 RUQ persists, but not as often, not as severe. he has started working out again. [id number] FRANCISCO Ramos (Adult Med) [address] [place] [address] 02/17/2018 09:51:00 02/17/2018 10:45:59 Acute otitis media 7266506 H65.01 right ear erythemato us w/ fluid, treat for ear infection w/ abx. Acute bron chitis with bronchospasm 68656986 J20.9 treat w/ prednsione and also start taking daily allergy med and benadryl at bedtime to help post-nasal drainage induced cough Insomnia 538095602 G47.0 0 His sleep is improved on trazodone. He would like to get full year of refills. Recommend once a year annual exam with labs. Gastroesop hageal reflux disease without esophagitis 570523636 K21.9 controlled on rantidine Inguinal pain 943408798 R10.2 Has been present for over one year. right sided, negative workup on scrotal u/s and CT abd/pelvis , but he continues to have pain & bulging to area especially w/ recent cough sxs. He saw and conservati ve measures recommende d at that time. Pt would like to discuss w/ general surgeon. Body mass index 25-29 - overweight [id number] Z68.28 He follows heart healthy diet and continues to exercise despite groin pain that comes & goes. 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 Cont allergy med during day, try benadryl at night to dry up post-nasal drainage. Ears look better. Call if not better at end of steroid pack. Health Concerns Section Related Observation LastModified by Organization Detai ls LastModified Time None Recorded Concern Status LastModified by Organization Details LastModified Time None Recorded Advance Directives Directive None Recorded Payers Encounter Date Sequence Insurance Name Policy Number Policy [place] Covered Member ID [place]ano Member ID Guarantor Name 10/24/2016 1 [employer] [employer] [place] ([place] [id number] Lexii Herrera [id number] Matias Herrera 12/11/2016 1 [place] [id number] Lexii Herrera [id number] Matias Herrera 09/26/2017 1 [employer] ([place]) [id number] Waqas Herrera [id number] Matias Herrera 02/17/2018 1 [employer] ([place]) [id number] Waqas Herrera [id number] Matias Herrera 02/28/2018 1 [employer] ([place]) [id number] Waqas Herrera [id number] Matias Herrera Notes Date Note Type Note Provider Name and Address Organization Details Recorded Time 10/24/2016 text/html abdominal pain persists. resting, laying down eases the pain. Activity exacerbates itmowed lawn Sat & hurt more on Saturday.Ibuprofen helps at the time but still gets pain. urinary sx are improving, not going as frequently, flow is a little better. Stopped benadryl, taking flomax. Has appt at end of month. HLD: wasn't fasting, but he has also gained weight since he developed abdominal pain. Ivy Clay PA-C Attn: [address] [place], [address], [facility] 10/24/2016 10:05:47 12/11/2016 text/html Insomnia: trazod one 50mg at first helped, but last few nights has had trouble falling asleep. The other night took 100mg, woke up at 4am and last night couldn't fall asleep until almost 1am. He has to wake up early and so he feels tired this morning. Urinary retention: better, off flomax for past week, didn't refill. stream is good, no hesitation, dribbling or frequency. Abdominal strain: getting better, still not 100%. Not using NSAIDs regularly. restarting some exercise, walking when weather was good; getting a treadmill so he can walk indoors in winter. wants to wait til spring to start running. Also wants to restart doing push ups, still wary of sit ups/crunches. Ivy Clay PA-C Attn: [address] [facility], [place], [address], [facility] 12/11/2016 10:07:36 09/26/2017 text/html right groin JOSUÉ Ramachandran, [place] [facility] 09/27/2017 10:11:04 02/17/2018 text/html CoughReported bypatient.Quality:b arking Severity:moderate Duration:symptoms lasting over 2 weeks Timing:gradual Context:non-smoker; worse at night(w/ laying down) Modifying Factors:OTC medication (Nyquil & Dayquil) Associated Symptoms:no fever; no chills; no heartburn; no nausea; no edema; no agitation;chest pain(mild w/ hard coughing);vomiting( w/ hard coughing spasms);wheezing;po st nasal dripNotes:dtr has similar cough & using neb tx. Right lateral abdominal pain is resolved.GERD cont to be controlled after changing from PPI to H2 missy.He continues to work out, but right groin pain persists and will feel bulge especially with past 2 weeks of persistent cough. Then bulge goes away on its own. Ivy Clay PA-C Attn: [address] [place], [address], [facility] 02/17/2018 10:31:54 02/28/2018 text/html Same sxs for pas t 3 weeks, seems worse, nikhil ear pressure, cough seems to have moved up in chest, tight wheezy type cough, still a lot of sinus drainage. Taking zyrtec at bedtime. completed all of amoxicillin. No known fevers or chills. Could only be seen by Dr. Johansen on Sat and that is his busiest day at work, asking for another surgeon referral Ivy Clay PA-C Attn: [address] [place], [address], [facility] 02/28/2018 10:26:55
--- NOTE | 2024-06-01 18:10 | ED.BACK ---
HPI - Back Pain/Injury General Chief Complaint: Back Pain/Injury Stated Complaint: Back Pain Time Seen by Provider: 06/01/24 18:10 Source: patient Mode of arrival: ambulatory Limitations: no limitations History of Present Illness HPI Narrative: 48-year-old male presents with complaint some mild low back aching for the past several weeks. Has been using a heating pad. Was sitting at desk on heating pad and felt sharp shooting pain to low back. Has reading pain to left lower extremity when lifting it up on to coffee table. Reports some intermittent weakness feeling to left lower extremity. No loss of bowel or bladder. Denies back injury. Has taken Tylenol today to treat pain. All systems reviewed and negative except as noted above. Related Data Home Medications ?Medication ?Instructions ?Recorded ?Confirmed ?Last Taken ?Type omeprazole magnesium 20 mg 20 mg PO DAILY 10/28/23 10/28/23 Unknown History tablet,delayed release (Prilosec OTC) Allergies Allergy/AdvReac Type Severity Reaction Status Date / Time No Known Allergies Allergy Verified 06/01/24 17:48 Review of Systems Review of Systems: CONSTITUTIONAL: Denies fever, chills, or sweats. EYES: Denies visual changes, redness, or discharge. ENT: Denies rhinorrhea, congestion, sore throat, or otalgia. CARDIOVASCULAR: Denies chest pain, palpitations, or edema. RESPIRATORY: Denies cough or dyspnea. GASTROINTESTINAL: Denies abdominal pain, nausea, vomiting, or diarrhea. GENITOURINARY: Denies dysuria or hematuria. SKIN: Denies rash or itching. MUSCULOSKELETAL: Reports low back pain with intermittent radiation to left lower extremity when lifting Leg. NEUROLOGIC: Denies headache, numbness, or weakness. PSYCHIATRIC: Denies anxiety or depression. All other systems reviewed are negative, except as documented in HPI. PMFSH Comments At time of signature, agree with nursing past medical, surgical, social and family history. There is no relevant family history pertinent to the presenting complaint. Exam Narrative: GENERAL: This is a well-nourished, well-developed patient, in no apparent distress. HEAD: normocephalic, atraumatic. EYES: PERRL. Sclera clear/white. Vision is grossly intact. EARS: External ears normal NOSE: External nose normal NECK: Neck supple, non-tender without lymphadenopathy, masses or thyromegaly. CARDIOVASCULAR: Regular rate and rhythm without murmurs, gallops, or rubs. RESPIRATORY: Clear to auscultation. Breath sounds equal bilaterally. No wheezes, rales, or rhonchi. SKIN: warm, Dry, intact with no suspicious lesions or rash, good texture and turgor. NEURO: awake, alert, and oriented to person, place and time. There were no obvious focal neurologic abnormalities. EXTREMITIES: No joint tenderness, effusion, or edema noted. No calf tenderness. Negative Homans sign bilaterally. BACK: no midline tenderness. Tenderness to bilateral SI joints. Lower extremity strength 5/5 bilaterally. Bilateral straight leg raise negative. Course Course Level of Care: Express Care Visit Vital Signs Vital signs: Vital Signs Temperature 36.9 C 06/01/24 17:42 Pulse Rate 105 H 06/01/24 17:42 Respiratory Rate 20 06/01/24 17:42 Blood Pressure 123/85 06/01/24 17:42 Pulse Oximetry 96 06/01/24 17:42 Oxygen Delivery Room Air 06/01/24 17:42 Temperature 36.9 C 06/01/24 17:42 Pulse Rate 105 H 06/01/24 17:42 Respiratory Rate 20 06/01/24 17:42 Blood Pressure 123/85 06/01/24 17:42 Pulse Oximetry 96 06/01/24 17:42 Oxygen Delivery Room Air 06/01/24 17:42 Reviewed MDM - Back Pain/Injury MDM Narrative Medical decision making narrative: x-ray of lumbar spine normal. Discussed results with patient. Will treat patient with prednisone, muscle relaxant for low back strain. Recommend he continue [id number] Tylenol or ibuprofen. Please be advised this is a medical document. It is intended for [id number] communication. It is written in medical language and may contain unfamiliar abbreviations or verbiage. Medical documents are intended to carry relevant information, facts as evident, and the clinical opinion of the practitioner at the time of the encounter. This report may have been done utilizing a voice recognition system. Attempts have been made to correct errors. However, there may be uncorrected grammatical, spelling, and recognition errors present. The file time of this note does not necessarily represent the time of service. Imaging Data My impression: agree with radiologist Radiologist's impression: 3 VIEWS LUMBAR SPINE Ordering provider: Kelly L. Castellanos, [facility] History: . back pain.NKI. . Comparison: None. FINDINGS: VERTEBRAL BODIES: No visible fracture or subluxation. Degenerative changes of the spine. DISK SPACES: Normal. SOFT TISSUES: Normal. IMPRESSION: No acute osseous abnormality lumbar spine. Discharge Plan Discharge Clinical Impression: Strain of lumbar region Qualifiers: Encounter type: initial encounter Qualified Code(s): S39.012A - Strain of muscle, fascia and tendon of lower back, initial encounter Patient Disposition: Home Condition: Stable Instructions: Low Back Strain (ED), Lower Back Exercises (ED) Additional Instructions: take medications as prescribed. Start prednisone prescription tomorrow morning. Methocarbamol as a muscle relaxant may make you drowsy. Do not drive while taking this medication. May alternate between ibuprofen and Tylenol every 4 hours as needed for pain. Alternate between ice and heat. Do back stretches as tolerated. Follow-up with your primary care physician if symptoms are not improving. If you have severe back pain, loss of bowel or bladder, or unable to walk go to the ER. Patient Language: Serbian Prescriptions: New prednisone 20 mg tablet See Rx Instructions .ROUTE .COMPLEX Qty: 12 0RF Rx Instructions: Take 3 tablets today, then 2 tablets daily for 3 days then 1 tablet daily for 3 days. methocarbamol 750 mg tablet 750 mg PO Q8H PRN (Reason: muscle pain/spasm) Qty: 30 0RF No Action omeprazole magnesium [Prilosec OTC] 20 mg Tablet,Delayed Release (Dr/Ec) 20 mg PO DAILY Follow-up/Referrals: Charity,EMA Long [Primary Care Provider] - Time of Disposition: 18:45
[2024-06-01] MEDS: KETOROLAC (*BKC) 60 MG/2 ML VIAL IM (18:26)
== END 2024-06-01 18:49 | disposition home or self-care (01) ==
PROVIDERS: Emergency Provider Nurse Practitioner Family; PCP Nurse Practitioner Family
DX: S39.012A Strain of muscle, fascia and tendon of lower back, initial encounter (principal); X58.XXXA Exposure to other specified factors, initial encounter
CPT/HCPCS: 72100; 96372; 99213; G0463; J1885